=== PATIENT | male | born 1950 | race Caucasian/White ===

== ENCOUNTER → 2017-10-11 09:29 | Outpatient (CLI) | payer MEDICARE, OTHER, SELFPAY ==
--- NOTE | 2017-10-11 09:43 | US_ITS ---
FNA w guidance HISTORY: Right thyroid mass ITS.REASON: RT THYROID NODULE ORDERING PHYSICIAN: Adalberto Vasques MD PATIENT AGE: 66 years COMPARISON: 09/22/2017 Prebiopsy ultrasound: 7 x 3 cm heterogeneous echogenic mass hypervascular. The center of the mass was targeted for biopsy. TECHNIQUE: Following obtaining informed consent, using aseptic technique and local anesthesia with buffered lidocaine, fine-needle aspiration was performed of the nodule of interest using sonographic guidance. 3 passes were made into the nodule with a 25-gauge needle. Specimen was given to cytology. The patient tolerated the procedure well without evidence of immediate complications and left the ultrasound suite in stable condition. CYTOLOGY:Atypical follicular lesion of undetermined significance IMPRESSION: Successful sonographic guided biopsy of the right thyroid mass showing atypical follicular lesion of undetermined significance. No immediate complications
--- NOTE | 2017-10-11 09:43 | US_ITS ---
US thyroid HISTORY: ITS.REASON: RT THYROID NODULE ORDERING PHYSICIAN: Adalberto Vasques MD PATIENT AGE: 66 years Comparison: None FINDINGS: The right lobe is 7.6 x 2.8 x 7.8 cm. The right lobe is mostly compromised by large nodule is 7 x 3 cm heterogeneous echogenicity which is somewhat hypervascular having both areas of increase and decrease echogenicity. The left lobe is 4.2 x 1.7 x 2.1 cm and contains a 5 mm hypoechoic nodule with enhanced through transmission of sound. The isthmus is thickened at 5 mm. IMPRESSION: Right thyroid mass as described above
== END ==
PROVIDERS: PCP Family Medicine; Visit Provider Otolaryngology
DX: D34 Benign neoplasm of thyroid gland (principal)
CPT/HCPCS: 10022; 76536; 88173